=== PATIENT | female | born 1955 | race Caucasian/White ===

== ENCOUNTER 2019-05-12 08:59 | Outpatient (CLI) | payer OTHER ==
--- NOTE | 2019-05-12 11:23 | BD ---
BONE DENSITOMETRY USING DEXA: Date: 05/12/2019 HISTORY: Postmenopausal screening for osteoporosis. FINDINGS: Lumbar Spine: BMD (g/cm2) L1 0.664 T-Score: -3.0 Z-Score: -1.4 L2 0.688 T-Score: -3.1 Z-Score: -1.4 L3 0.596 T-Score: -4.4 Z-Score: -2.7 L4 0.505 T-Score: -5.1 Z-Score: -3.2 L1-L4 0.607 T-Score: -4.0 Z-Score: -2.3 Femoral Neck: 0.553 T-Score: -2.7 Z-Score: -1.2 Total Femur: 0.622 T-Score: -2.6 Z-Score: -1.4 IMPRESSION: Osteoporosis. POS: [facility]
--- NOTE | 2019-05-12 14:41 | MMO ---
Bilateral MAMMO Bilat Screen [facility]. CLINICAL HISTORY: Patient is 64 years old and is seen for screening. The patient has no family history of breast cancer. The patient has no personal history of cancer. VIEWS: The views performed were: bilateral craniocaudal with tomosynthesis and bilateral mediolateral oblique with tomosynthesis. FILMS COMPARED: The present examination has been compared to prior imaging studies performed at [facility] on 04/04/2005, 04/11/2005, 04/21/2005 and 09/02/2007. This study has been interpreted with the assistance of computer-aided detection. MAMMOGRAM FINDINGS: The breasts are heterogeneously dense, which could obscure a lesion on mammography. Benign calcifications are noted bilaterally. There are no suspicious masses, suspicious calcifications, or new areas of architectural distortion. IMPRESSION: THERE IS NO MAMMOGRAPHIC EVIDENCE OF MALIGNANCY. A ROUTINE FOLLOW-UP MAMMOGRAM IN 1 YEAR IS RECOMMENDED. THE RESULTS OF THIS EXAM WERE SENT TO THE PATIENT. ACR BI-RADS Category 2 - Benign finding MAMMOGRAPHY NOTE: 1. A negative mammogram report should not delay a biopsy if a dominant of clinically suspicious mass is present. 2. Approximately 10% to 15% of breast cancers are not detected by mammography. 3. Adenosis and dense breasts may obscure an underlying neoplasm. Reported by: ADAMARIS HENSON MD Electonically Signed: [id number]
== END 2019-05-12 09:00 | disposition home or self-care (01) ==
LOC: BICMAMMO 08:59
PROVIDERS: ATTEND Family Medicine
DX: Z12.31 Encounter for screening mammogram for malignant neoplasm of breast (principal); Z13.820 Encounter for screening for osteoporosis; M81.0 Age-related osteoporosis without current pathological fracture; Z78.0 Asymptomatic menopausal state
CPT/HCPCS: 77063; 77067; 77080

== ENCOUNTER 2021-09-02 10:50 | Outpatient (CLI) | payer MEDICARE | END 2021-09-02 10:51 | disposition home or self-care (01) | LOC: BICMAMMO 10:50 | PROVIDERS: ATTEND Family Medicine | DX: Z12.31 Encounter for screening mammogram for malignant neoplasm of breast (principal); Z13.820 Encounter for screening for osteoporosis; M81.0 Age-related osteoporosis without current pathological fracture | CPT/HCPCS: 77063; 77067; 77080 ==

== ENCOUNTER 2023-04-09 10:50 | Outpatient (CLI) | payer MEDICARE | END 2023-04-09 10:51 | disposition home or self-care (01) | LOC: BICMAMMO 10:50 | PROVIDERS: ATTEND Family Medicine | DX: Z12.31 Encounter for screening mammogram for malignant neoplasm of breast (principal) | CPT/HCPCS: 77063; 77067 ==

== ENCOUNTER 2023-07-14 13:56 | Outpatient (CLI) | payer MEDICARE | END 2023-07-14 13:57 | disposition home or self-care (01) | LOC: SCSRAD 13:56 | PROVIDERS: ATTEND Family Medicine | DX: S89.92XA Unspecified injury of left lower leg, initial encounter (principal); M85.862 Other specified disorders of bone density and structure, left lower leg ==

== ENCOUNTER 2023-11-26 14:44 | Outpatient (CLI) | payer MEDICARE | END 2023-11-26 14:45 | disposition home or self-care (01) | LOC: BICULT 14:44 | PROVIDERS: ATTEND Physician Assistant | DX: E06.3 Autoimmune thyroiditis (principal); E07.89 Other specified disorders of thyroid | CPT/HCPCS: 76536 ==